=== PATIENT | female | born 1995 | race Caucasian/White ===

== ENCOUNTER → 2020-03-29 13:35 | Outpatient (CLI) | payer OTHER, MEDICAID, SELFPAY | PROVIDERS: PCP Midwife; Visit Provider Nurse Practitioner | DX: J02.9 Acute pharyngitis, unspecified (principal) | CPT/HCPCS: 87070 ==

== ENCOUNTER → 2020-06-18 12:01 | Outpatient (CLI) | payer OTHER, MEDICAID, SELFPAY ==
--- NOTE | 2020-06-18 | DI.CT.S_ITS ---
PROCEDURE: CT SOFT TISSUE NECK W CON INDICATIONS: Cervicalgia. Lymphadenopathy, neck. Neck pain, globus sensation. TECHNIQUE: After the administration of intravenous contrast, 3.0 mm axial sections acquired from the sella to the aortic arch. Additional oblique axial 3.0 mm sections acquired through the pharynx. 3 mm thick coronal and sagittal reformats were generated. For radiation dose reduction, the following was used: automated exposure control. COMPARISON: None. FINDINGS: Image quality: Excellent. Lymph nodes: Borderline prominent lymph nodes are seen on both sides of neck, yet without jesse enlargement. Vessels: Visualized vasculature appears patent. Neck spaces: The oropharynx, nasopharynx, and pharynx demonstrate no mucosal lesions. The vocal cords, false vocal cords, pyriform sinuses, epiglottis, vallecula, and tongue base all appear normal. Extramucosal spaces appear unremarkable. Glands: The parotid and submandibular glands appear normal. Thyroid gland demonstrates no significant abnormality. Miscellaneous: Visualized brain and orbits appear normal. Lung apices appear clear. Superficial soft tissues appear normal. Bones: No suspicious bony lesions. Visualized sinuses and mastoids appear unremarkable. IMPRESSION: Borderline prominent lymph nodes are seen on both sides, yet without pathologic enlargement of lymph nodes identified. No masses are seen, including no mucosal masses identified. Dictated by: Jayson Dawson M.D. on 06/18/2020 at 12:13 Approved by: Jayson Dawson M.D. on 06/18/2020 at 12:15
== END ==
PROVIDERS: Referring Provider Otolaryngology; Visit Provider Otolaryngology
DX: M54.2 Cervicalgia (principal); R09.89 Other specified symptoms and signs involving the circulatory and respiratory systems
CPT/HCPCS: 70491

== ENCOUNTER → 2022-12-02 08:12 | Outpatient (CLI) | payer OTHER, MEDICAID, SELFPAY ==
--- NOTE | 2022-12-02 | DI.US.S_ITS ---
PROCEDURE: US BREAST LT LIMITED COMPARISON: None. INDICATIONS: Unspecified lump in the left breast FINDINGS: IMPRESSION: In the left upper outer breast in the area of palpable abnormality there is a normal-appearing lymph node measuring 1.5 x 0.4 x 1.2 cm. There is also a 3.6 x 0.7 x 2.0 cm lipoma cyst 15 cm from the nipple which also corresponds with the area of palpable abnormality. Recommend that the patient follow-up with her regular doctor. Dictated by: Enrrique Reynolds M.D. on 12/02/2022 at 14:29 Approved by: Enrrique Reynolds M.D. on 12/02/2022 at 14:33
== END ==
PROVIDERS: Referring Provider Naturopath; Visit Provider Naturopath
DX: N63.21 Unspecified lump in the left breast, upper outer quadrant (principal); N60.02 Solitary cyst of left breast
CPT/HCPCS: 76642